=== PATIENT | male | born 2000 | race Caucasian/White ===

== ENCOUNTER 2023-12-07 17:37 | Emergency (ER) | payer OTHER ==
[~2023-12-07] VITALS: Ht 175.3 cm; Wt 58.2 kg
[2023-12-07 18:22] VITALS: BP 133/82
== END 2023-12-07 19:15 | disposition home or self-care (01) ==
LOC: ED 17:37
DX: S90.112A Contusion of left great toe without damage to nail, initial encounter (principal); W20.8XXA Other cause of strike by thrown, projected or falling object, initial encounter